=== PATIENT | female | born 1985 | race Caucasian/White ===

== ENCOUNTER 2020-03-19 16:59 | Emergency (ER) | payer OTHER, SELFPAY ==
--- NOTE | 2020-03-19 17:03 | ED.EAR ---
HPI - Ear Problem General Chief complaint: Ear Stated complaint: EARACHE Time Seen by Provider: 03/19/20 17:03 Source: patient and RN notes reviewed History of Present Illness HPI Narrative: Patient is a 34-year-old female who presents the urgent care with complaints of severe sore throat that started today at 10 AM. Patient states that for the last couple days she has had some rhinorrhea, itchy eyes, mild sinus pressure and now bilateral earache. Patient states that she takes allergy medication daily such as eyedrops, antihistamine, and Flonase nasal spray. States that she wears her mask religiously while working but does work with the public, at [employer]. Patient denies any fever, chills, nausea, vomiting. Denies any known exposure with coronavirus. No other acute complaints. No acute distress noted. Patient read the plan of care. Related Data Home Medications Medication Instructions Recorded Confirmed No Home Medications 03/19/20 03/19/20 Allergies Allergy/AdvReac Type Severity Reaction Status Date / Time acetaminophen [From Percocet] Allergy Itching Verified 03/19/20 17:09 oxycodone [From Percocet] Allergy Itching Verified 03/19/20 17:09 Review of Systems Review of Systems: Narrative: CONSTITUTIONAL: Denies fever, chills, or sweats. EYES: Denies visual changes, redness, or discharge. ENT: Reports of sore throat, rhinorrhea, mild sinus pressure and bilateral otalgia CARDIOVASCULAR: Denies chest pain, palpitations, or edema. RESPIRATORY: Denies cough or dyspnea. GASTROINTESTINAL: Denies abdominal pain, nausea, vomiting, or diarrhea. GENITOURINARY: Denies dysuria or hematuria. SKIN: Denies rash or itching. MUSCULOSKELETAL: Denies back pain, joint pain, or myalgia. NEUROLOGIC: Denies headache, numbness, or weakness. All other systems reviewed are negative, except as documented in HPI. PMFSH Comments At the time of my signature, I reviewed and agree with the nursing past medical, surgical, social, and family history. There is no relevant family history pertinent to the patient complaint. Exam Narrative: Exam Narrative: GENERAL: This is a well-nourished, well-developed patient, in no apparent distress. HEAD: normocephalic, atraumatic. EYES: PERRL. Sclera clear/white. Vision is grossly intact. EARS: External ears normal, auditory canals clear and without drainage, mild fluid noted behind bilateral TMs without otitis, TMs normal without perforation. Hearing grossly intact. NOSE: External nose normal with no obvious nasal discharge, nares without redness, no rhinorrhea. THROAT: Mucous membranes moist, mild erythema to the posterior oropharynx with mild postnasal drainage without exudate or ulceration NECK: Neck supple SKIN: warm, intact with no suspicious lesions or rash, good texture and turgor. NEURO: awake, alert, and oriented to person, place and time. There were no obvious focal neurologic abnormalities. EXTREMITIES: No clubbing, cyanosis, or edema. Course Vital Signs Vital signs: Vital Signs Temperature 97.9 F 03/19/20 17:08 Pulse Rate 84 03/19/20 17:08 Respiratory Rate 16 03/19/20 17:08 Blood Pressure 138/89 03/19/20 17:08 Pulse Oximetry 99 03/19/20 17:08 Temperature 97.9 F 03/19/20 17:08 Pulse Rate 84 03/19/20 17:08 Respiratory Rate 16 03/19/20 17:08 Blood Pressure 138/89 03/19/20 17:08 Pulse Oximetry 99 03/19/20 17:08 Reviewed Medical Decision Making MDM Narrative Medical decision making narrative: Reviewed lab results with the patient. She is aware that strep swab was negative. Educated patient on culture and we will call within 72 hours if culture is positive and antibiotics are necessary. Advised the patient to continue use of [id number] medication such as Flonase, Zyrtec/Claritin and ibuprofen/Tylenol as needed. May use throat spray as needed for pain. Increase fluids and rest. If you develop any increase in symptoms such as fever, nausea, vomiting?follow-up
[2020-03-19 17:08] VITALS: BP 138/89; PULSE 84; RESP 16; TEMP 36.6; O2SAT 99
== END 2020-03-19 17:22 | disposition home or self-care (01) ==
PROVIDERS: Emergency Provider Nurse Practitioner Family
DX: J02.9 Acute pharyngitis, unspecified (principal)
CPT/HCPCS: 87081; 87880; 99213; G0463

== ENCOUNTER 2020-04-04 10:46 | Emergency (ER) | payer OTHER, SELFPAY ==
--- NOTE | ~2020-04-04 | XR_ITS ---
EXAMINATION: XR chest 2V EXAM DATE: 04/04/2020 11:08 INDICATION: Fever, body aches. TECHNIQUE: Frontal and lateral projections of the chest obtained and reviewed. There is no prior jessy dy for comparison. FINDINGS: The lungs are clear. There are no pleural effusions. The cardiomediastinal silhouette is within normal limits. There is no pneumothorax suspected. The bones and soft tissues are unremarkab le. IMPRESSION: No acute cardiopulmonary findings. Reviewed, dictated and finalized at location G.
[2020-04-04 10:54] VITALS: BP 129/83; PULSE 98; RESP 16; TEMP 37.2; O2SAT 100
--- NOTE | 2020-04-04 11:05 | ED.FEVER ---
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 Patient states she she has a 2-day history of measured 100.8 fever, associated with chills, myalgias w headache. No cough, shortness of breath, chest pain, sick family/contacts, abdominal pain/vomiting/diarrhea/dehydration, far travel history, loss of taste and smell, frequency/urgency/dysuria. Symptoms are mild to moderate despite OTC TYlenol, sinus preps The patient agrees, in light of health emergency- in my medical judgement, only a personal chat was preferable to fully undress & examine the patient exhibiting potential COVID symptoms- in order to limit risk of infection. Related Data Allergies Allergy/AdvReac Type Severity Reaction Status Date / Time acetaminophen [From Percocet] Allergy Itching Verified 03/19/20 17:09 oxycodone [From Percocet] Allergy Itching Verified 03/19/20 17:09 Review of Systems Review of Systems: Narrative: General/Constitutional: No weight loss, REPORTS fever Eyes: N0: Redness,discharge Ears/Nose/Throat: No: Epistaxis,ear discharge Respiratory: Denies: Hemoptysis Gastrointestinal: No Vomiting, Bleeding-rectal Skin: No Lumps, eruption Neurologic: No Focal Weakness,Sz Hematologic: Denies: Petechiae/Purpura Psychiatric: No: Suicida ideationl All Other Systems: Reviewed and Negative [facility] Social History Social History Gender identity (if verbalized by the patient): Female Comments At time of signature, agree with nursing past medical, surgical, social and family history. 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 Films visualized, interpreted by radiologist, agree, normal see report Vital Signs Vital signs: Vital Signs Temperature 98.9 F 04/04/20 10:54 Pulse Rate 98 04/04/20 10:54 Respiratory Rate 16 04/04/20 10:54 Blood Pressure 129/83 04/04/20 10:54 Pulse Oximetry 100 04/04/20 10:54 Temperature 98.9 F 04/04/20 10:54 Pulse Rate 98 04/04/20 10:54 Respiratory Rate 16 04/04/20 10:54 Blood Pressure 129/83 04/04/20 10:54 Pulse Oximetry 100 04/04/20 10:54 MDM - Fever MDM Narrative Medical decision making narrative: MDM Med Decision Making DATA REVIEWED RADIOLOGY: ordered & reviewed r TEST : personally over-read RISKS of M &M CC/PROBLEM severe PROCEDURE low Tx OPTIONS Discharge Plan Discharge Clinical Impression: Fever of unknown origin Patient Disposition: Home, Self-Care Condition: Stable Instructions: Antibiotic Form Additional Instructions: Go to hospital to get COVID testing Go to pharmacy to get prescriptions-- where a pulse oximetry, supplements, ASA available also See doctor in follow-up; quarantine yourself till fever and test over Prescriptions: New azithromycin 250 mg tablet See Rx Instructions .ROUTE .COMPLEX Qty: 6 RF: 0 Follow-up/Referrals: PHYSICIAN,CHANGE AGENT [Primary Care Provider] - Stand Alone Forms: Work/School Release IP Discharge Date/Time: 04/04/20 11:20
== END 2020-04-04 11:20 | disposition home or self-care (01) ==
PROVIDERS: Emergency Provider Emergency Medicine
DX: R50.9 Fever, unspecified (principal); Z20.828 Contact with and (suspected) exposure to other viral communicable diseases
CPT/HCPCS: 71046; 87635; 99213; G0463; U0003

== ENCOUNTER 2020-04-22 08:40 | Outpatient (CLI) | payer OTHER, SELFPAY ==
--- NOTE | ~2020-04-22 | XR_ITS ---
XR chest 2V DATE: 04/22/2020 08:52 INDICATION: Shortness of breath TECHNIQUE: PA and lateral views COMPARISON: 04/04/2020 PA and lateral chest FINDINGS: Normal heart size. No hilar or mediastinal enlargement. No pulmonary infiltrate or consolid ation, pleural effusion or pulmonary vascular congestion or pneumothorax. Included skeletal structure s are unremarkable. IMPRESSION: Negative Reviewed, dictated and finalized at location A. IMPRESSION: Negative
== END 2020-04-22 08:41 | disposition home or self-care (01) ==
LOC: ANHIMG 08:44
PROVIDERS: PCP Family Medicine; Visit Provider Family Medicine
DX: R06.02 Shortness of breath (principal)
CPT/HCPCS: 71046

== ENCOUNTER 2020-12-28 14:50 | Outpatient (CLI) | payer OTHER, SELFPAY ==
--- NOTE | ~2020-12-28 | US_ITS ---
EXAMINATION: US pelvic complete DATE: 12/28/2020 15:14 INDICATION: Excessive frequent menstruation Comparison:No prior studies for comparison. TECHNIQUE: Multiple transabdominal sonographic images of the pelvis performed. FINDINGS: The uterus measures 8.7 x 4.5 x 4.9 cm. The endometrial complex measures 6 mm. The right ovary measures 2.6 x 1.6 x 2.2 cm and the left ovary measures 2.7 x 1.9 x 2.3 cm. There ar e small follicles in each ovary. Normal doppler signal in both ovaries. There is no free fluid in the pelvis. There are no abnormal masses seen on either side. IMPRESSION: 1. Unremarkable pelvic ultrasound Reviewed, dictated and finalized at location A.
== END 2020-12-28 14:51 ==
PROVIDERS: Visit Provider Nurse Practitioner
DX: N92.0 Excessive and frequent menstruation with regular cycle (principal)
CPT/HCPCS: 76856

== ENCOUNTER 2021-02-04 11:00 | Outpatient (RCR) | payer OTHER, SELFPAY ==
--- NOTE | 2021-01-05 14:22 | PTOPEVAL ---
INITIAL PHYSICAL THERAPY EVALUATION and PLAN OF CARE Thank you for referring Talya Busby to [facility].? Talya is scheduled to be seen for physical therapy? 2x/week for 2 weeks, 1x/wk x 2 weeks. Please review, sign, date and return this plan of care SHEA. I agree with and certify that the following plan of care is medically necessary. Referring Physician Date Admitting Provider: Attending Provider: Donna Martinez MD Referring Provider: *PT Outpatient Evaluation Start: 01/05/21 13:13 Freq: Status: Active Protocol: Document 01/05/21 13:10 YELITZA (Rec: 01/05/21 14:22 YELITZA [id number]) Therapy Assessment Status Assessment Status Assessment Status Evaluation Outpatient Past Medical History Past Medical History Source of Past Medical History Patient Musculoskeletal History Hx Back Pain Yes: bulging discs - back pain in past - better now Reproductive History Hx Other Reproductive Disorders Yes: coloposity - working up uterus for cancer Evaluation Information Problem Diagnosis pelvic floor pain Onset May 2020 Subjective Information Talya reports that she began Query Text:As Reported By Patient/ having symptoms similiar to Family having a UTI - but all of the testing has been negative. Was sent to [facility] - with pelvic exam - increased discomfort and increase with tissue tension felt. 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 Home Meds Must Be Re-entered With Each Visit. Comments Additional Prior Level of Function recreation - walks around, Comments theme choudhary with daughter Pain Assessment Timing of Pain Assessment Timing of Pain Assessment Assessment Pain Scale Pain Scale Used Numeric (1 - 10) Self Report Pain Assessment Lower Abdomen Reported Pain Level 0 Pain Description Sharp,Shooting Other Pain Description discomfort lingered after MD exam Lowest Pain Intensity 0 Greatest Pain Intensity 5 Pain Score Pain Score 0:
--- NOTE | 2021-01-20 16:02 | PCPTNOTE ---
Addendum entered by JES GUPTA, PT, DPT 01/20/21 16:22: Talya did return phone call. She had called 01/19/21 trying to reschedule today's appointment. She was told things were too busy - unable to do so. Today's appointment was then supposed to be cancelled. Original Note: Patient did not show up for scheduled appointment this date. Phone call made - reminded her of her next appointment.
--- NOTE | 2021-02-04 14:51 | PTOPEVAL ---
PHYSICAL THERAPY RE-EVALUATION Thank you for referring Talya Busby to [facility].? Talya is progressing well in PT but she still has Levator Ani tightness - especially on the L side. Functionally, she is doing well. It was decided at today's appointment for me to follow up in 1 week via phone to see how she is doing. If further treatment is warranted will update plan of care, send for signature, and continue with treatment. I agree with the above. Referring Physician Date Admitting Provider: Attending Provider: Donna Martinez MD Referring Provider: Therapy Assessment Status Assessment Status Assessment Status Re-evaluation Evaluation Information Problem Diagnosis pelvic floor pain Subjective Information Talya reports that she Query Text:As Reported By Patient/ usually doesn't get up at Family night to go bathroom unless she drinks lots of water. Decreased urinary frequency during the day. L lower quadrant discomfort has decreased ~ 70%. Was able to go on vacation with daughter to [place], [place] - able to horseback ride x 2 hours without discomfort - vacation and horseback riding. Pain Assessment Self Report Pain Assessment Lower Abdomen Reported Pain Level 0 Other Pain Description 0 Lowest Pain Intensity 3 Pain Score Pain Score 0: Self Report Palpation Assessment Palpation Palpation standing and supine - pelvis level - equal SIJ mobility Mild L lower quadrant tightness Pelvic Health Evaluation Pelvic Floor Assessment Permission Received for External/ Yes Internal Perineal Exam Internal Perineal Body Palpation mild tenderness R side 8-9 o' clock region - decreased tissue tension. More tightness and tenderness on L - 2-3 o'clock region - area of increased tightness feels very band like. Able to promote decrease in tenderness and tightness with soft tissue mobilization. PT Clinical Summary Clinical Summary Protocol: PTEVCODE PT Clinical Summary Vulvar Pain Functional Scale - 2 pts Talya is doing well with decrease in urination and L lower abdominal and pelvic
--- NOTE | 2021-02-16 08:02 | PCPTNOTE ---
PHYSICAL THERAPY DISCHARGE SUMMARY Admitting Provider: Attending Provider: Donna Martinez MD Patient:Talya Busby Date of :1985 Follow up phone call was made to Talya on 02/12/2021. She was doing well. She had returned from vacation and did well, no c/o's lower abdominal pain. Talya felt that she did not need to return to PT for further treatment. She was seen a total of 6 visits. She is being discharged from PT at this time with goals being met. Thank you for referring Talya to [facility]. Please review, sign, date and return this discharge summary SHEA. I have been updated about Talya's current status and I agree with discharge from the above service at this time. Referring Physician Date
== END 2021-02-17 12:49 | disposition home or self-care (01) ==
LOC: ANHPT 11:00
PROVIDERS: PCP Family Medicine; Visit Provider Obstetrics & Gynecology Gynecology
DX: R10.2 Pelvic and perineal pain (principal)
CPT/HCPCS: 97140; 97162

== ENCOUNTER → 2021-02-19 03:22 | Outpatient (CLI) | payer OTHER, SELFPAY ==
[2021-02-19 19:50] LABS: SARS-CoV-2 RNA PCR Negative
== END ==
PROVIDERS: PCP Family Medicine; Visit Provider Obstetrics & Gynecology Gynecology
DX: Z01.812 Encounter for preprocedural laboratory examination (principal); Z20.822 Contact with and (suspected) exposure to COVID-19
CPT/HCPCS: C9803; U0003; U0005

== ENCOUNTER 2021-02-22 00:18 | Day surgery (SDC) | payer OTHER, SELFPAY ==
[2021-02-09 16:27] VITALS: BMI 22.9
--- NOTE | 2021-02-22 07:24 | WPDHPUPDATE1 ---
History and Physical Update Update Date/Time: 02/22/21 07:24 History and Physical has been reviewed, including an updated exam of the patient. There are NO changes in the patient's condition. Risks, benefits, and alternatives have been discussed and questions answered. Patient agrees to proceed with procedure.
--- NOTE | 2021-02-22 07:25 | PM.HPGS ---
History of Present Illness History of Present Illness Consent: Risks, benefits, and alternatives have been discussed and questions answered. Patient agrees to proceed with procedure. Chief complaint: menorrhagia Narrative: Talya Busby is a 35 year old female with heavy menstrual cycles that are regular. Pelvic ultrasound is normal and CBC and thyroid are normal. Was recommended to proceed with hysteroscopy D& C. Possible pathology in was reviewed. Risks infection, bleeding, and perforation were reviewed. Questions were answered and patient agrees to proceed. Review of Systems Review of Systems: Narrative: not repeated day of surgery; patient states no changes in status Genitourinary: Genitourinary: Reports urinary incontinence (Mixed) and Reports other (Pelvic floor pain) Musculoskeletal: Musculoskeletal: Reports arthralgias Endocrine: Endocrine: Reports flushing Allergic/Immunologic: Allergic/Immunologic: Reports other (A fever) PMFSH Past Medical History Medical History (Updated 02/22/21 @ 07:31 by Donna Martinez MD) Bilateral elbow tendonitis (normal spontaneous vaginal delivery) Surgical History Surgical History H/O LEEP Social History Social History Smoking status: Never smoker Alcohol intake: current Substance use: current Substance use type: marijuana Other substance usage details: eatable mint 5 mg rarely Living arrangements: with family Gender identity (if verbalized by the patient): Female Spiritual care concerns: No Meds Home Medications and Allergies Home Medications Medication Instructions Recorded Confirmed Type albuterol sulfate 90 mcg/actuation 1 inhalation INHALATION Q4H PRN 04/21/20 02/09/21 Rx aerosol inhaler #8.5 gm duloxetine 30 mg capsule,delayed 30 mg PO BID #180 cap 01/26/21 02/09/21 Rx release Adults Multivitamin 1 tab-cap PO DAILY 02/09/21 02/09/21 History ascorbic acid (vitamin C) [Vitamin 250 mg PO DAILY 02/09/21 02/09/21 History C] elderberry fruit [Elderberry] 200 mg PO DAILY 02/09/21 02/09/21 History ibuprofen 800 mg PO Q6H PRN 02/09/21 02/09/21 History lactobacillus combination no.8 1 cell PO DAILY 02/09/21 02/09/21 History [Adult Probiotic] Allergies Allergy/AdvReac Type Severity Reaction Status Date / Time sulfamethoxazole Allergy Severe Hives Verified 02/09/21 16:04 [From Bactrim] trimethoprim [From Bactrim] Allergy Severe Hives Verified 02/09/21 16:04 oxycodone [From Percocet] Allergy Intermediate Itching; Verified 02/09/21 16:34 SOB meloxicam AdvReac Mild felt Verified 02/09/21 16:04 high without pain relief Exam Const: General: healthy appearing and alert Orientation/consciousness: patient oriented x3 Resp: Effort & Inspection: normal respiratory effort Auscultation: clear to auscultation bilaterally Cardio: Rate: regular rate Rhythm: regular rhythm GI: GI Palp: Yes Soft to palpation, No Tenderness to palpation present (GI) and No Palpable mass present : General: Yes Bladder palpation abnormal (tender with palpation) External Female Exam: normal external appearance Speculum Exam - Vagina: normal appearance of the vagina, normal vaginal discharge and other (1st degree cystocele; Bilateral pelvic floor tense and tender (L>R)) Speculum Exam - Cervix: normal appearance of the cervix Bimanual exam- vagina & uterus: uterine size normal and consistency normal Bimanual Exam- Adnexa, other: normal adnexae and No adnexal tenderness Neuro: General: patient oriented x3 Assessment and Plan Assessment and plan (1) Menorrhagia: Code(s): N92.0 - Excessive and frequent menstruation with regular cycle Status: Acute Assessment and Plan: Plan to proceed with hysteroscopy D&C
[2021-02-22] MEDS: ACETAMINOPHEN 500 MG TABLET 1000 MG PO (09:16)
[2021-02-22] MEDS: LACTATED RINGERS 1,000 ML 30 ML IV CONT (09:21)
[2021-02-22 09:24] VITALS: BP 119/88; PULSE 88; TEMP 36.3; O2SAT 100
--- NOTE | 2021-02-22 09:26 | P.PNAN_ITS ---
Anes - Initial Pre Proc Eval Procedure: Operation Date: 02/22/21 11:00 Proposed Procedures p Hysteroscopy Dilation and Curettage - Donna Martinez MD Date/Time: 02/22/21 09:26 Surgeon: Donna Martinez MD Pre Op Diagnosis: menorrhagia Patient Data Age: 35 Gender: F Height: 1.68 m Weight: 64.54 kg Allergies Allergy/AdvReac Type Severity Reaction Status Date / Time sulfamethoxazole Allergy Severe Hives Verified 02/22/21 09:10 [From Bactrim] trimethoprim [From Bactrim] Allergy Severe Hives Verified 02/22/21 09:10 oxycodone [From Percocet] Allergy Intermediate Itching; Verified 02/22/21 09:10 SOB meloxicam AdvReac Mild felt Verified 02/22/21 09:10 high without pain relief Home Medications Medication Instructions Recorded Confirmed Type albuterol sulfate 90 mcg/actuation 1 inhalation INHALATION Q4H PRN 04/21/20 0 02/09/21 Rx aerosol inhaler #8.5 gm duloxetine 30 mg capsule,delayed 30 mg PO BID #180 cap 01/26/21 02/09/21 Rx release Adults Multivitamin 1 tab-cap PO DAILY 02/09/21 02/09/21 History ascorbic acid (vitamin C) [Vitamin 250 mg PO DAILY 02/09/21 02/09/21 History C] elderberry fruit [Elderberry] 200 mg PO DAILY 02/09/21 02/09/21 History ibuprofen 800 mg PO Q6H PRN 02/09/21 02/09/21 History lactobacillus combination no.8 1 cell PO DAILY 02/09/21 02/09/21 History [Adult Probiotic] Patient hx anesthesia problems: none Family hx anesthesia problems: none PMFSH Past Medical History Medical History (Updated 02/22/21 @ 07:31 by Donna Martinez MD) Bilateral elbow tendonitis (normal spontaneous vaginal delivery) Surgical History Surgical History H/O LEEP Social History Social History Smoking status: Never smoker Alcohol intake: current Substance use: current Substance use type: marijuana Other substance usage details: eatable mint 5 mg rarely Living arrangements: with family Gender identity (if verbalized by the patient): Female Spiritual care concerns: No Anes - Eval Final PreProcedure Day of Procedure 02/22/21 09:26 Patient weight: normal Heart: regular rate and rhythm Lungs: clear to auscultation and normal air movement Airway: Mallampati scale class II Neurological: alert and oriented Last oral intake: >/= 8 hours ASA classification: II Emergent: no Anesthetic plan: proceed Anesthesia type and monitoring: general GIVS and standard monitoring Informed Consent: The patient's anesthetic plan and its attendant risks and benefits were discussed with the patient/family/POA. Questions were solicited and answers provided to the satisfaction of the patient/family/POA.
[2021-02-22] MEDS: KETOROLAC 30 MG/ML VIAL (*BKC) IV PUSH (11:03)
--- NOTE | 2021-02-22 11:13 | W.PM.PROC2 ---
Procedure Note - Detailed Date of Procedure 02/22/21 Pre-op Diagnosis menorrhagia Post-op Diagnosis same Procedure Performed D&C hysteroscopy Surgeon Donna Martinez MD Anesthesia MAC and local Findings Uterus sounds to 7cm and appears grossly secretory Description of Procedure The patient was taken to the operating room placed under anesthesia in the dorsal lithotomy position. She is prepped and draped in the usual sterile fashion. The bivalve speculum was placed in the vagina and the cervix is grasped on the anterior lip with a tenaculum. The cervix is injected with 1% lidocaine and dilated with Hegar. The diagnostic hysteroscope was placed with the stated findings. The hysteroscope was removed and the medium sharp curette is used to sharply curette the endometrium until a good uterine cry is obtained in all areas a moderate amount material was obtained consistent with the secretory appearing phase. The instruments are removed and the patient was awake from anesthesia and taken to recovery in stable condition. Sponge, instrument, and needle counts are correct per the OR staff. Estimated Blood Loss 5 Drains No Packing No Pathology yes (Endometrial curettings) Complications No immediate complications Condition stable Disposition PACU
[2021-02-22 11:40] VITALS: BP 109/78; PULSE 75; RESP 16; O2SAT 98
[2021-02-22] MEDS: fentaNYL CITRATE INJ (*CRX) 100 MCG/2 ML VIAL 25 MCG IV PUSH ×2 (11:46→12:10)
[2021-02-22 12:10] VITALS: BP 118/85; PULSE 75; RESP 16; O2SAT 97
[2021-02-22 12:20] VITALS: BP 121/77; PULSE 74; RESP 16
== END 2021-02-22 12:30 | disposition home or self-care (01) ==
PROVIDERS: PCP Family Medicine; Visit Provider Obstetrics & Gynecology Gynecology
PROC: 0U5B8ZZ Destruction of Endometrium, Via Natural or Artificial Opening Endoscopic (ICD-10-PCS; CPT 58563; principal; 2021-02-22 11:00)
DX: N92.0 Excessive and frequent menstruation with regular cycle (principal); Z79.51 Long term (current) use of inhaled steroids; F12.90 Cannabis use, unspecified, uncomplicated
CPT/HCPCS: 58558; 88305; A9270; C9803; J1885; J2250; J2704; J3010; J7030; J7120; U0003; U0005